=== PATIENT | female | born 1970 | race Caucasian/White ===

== ENCOUNTER 2016-06-03 16:08 | Emergency (ER) | payer MEDICAID ==
[~2016-06-03 16:08] MED LIST: MOTRIN800 MG PO; PRI20 PO
[2016-06-03 19:38] VITALS: BP 152/90
== END 2016-06-03 19:38 | disposition home or self-care (01) ==
LOC: ED 16:08
DX: G43.909 Migraine, unspecified, not intractable, without status migrainosus (principal); E78.00 Pure hypercholesterolemia, unspecified
CPT/HCPCS: J3030; Q0162

== ENCOUNTER 2017-04-27 16:37 | Emergency (ER) | payer MEDICAID ==
[~2017-04-27] VITALS: Ht 160 cm; Wt 60.8 kg
[2017-04-27 20:56] VITALS: BP 146/86
== END 2017-04-27 20:56 | disposition home or self-care (01) ==
LOC: ED 16:37
DX: G43.909 Migraine, unspecified, not intractable, without status migrainosus (principal); R03.0 Elevated blood-pressure reading, without diagnosis of hypertension; E78.00 Pure hypercholesterolemia, unspecified

== ENCOUNTER 2018-09-15 16:07 | Emergency (ER) | payer MEDICAID ==
[~2018-09-15] VITALS: Ht 157.5 cm; Wt 64.4 kg
[2018-09-15 16:15] VITALS: Ht 157.5 cm; Wt 64.4 kg
[2018-09-15 17:43] VITALS: BP 127/55
== END 2018-09-15 17:43 | disposition home or self-care (01) ==
LOC: ED 16:07
DX: G43.909 Migraine, unspecified, not intractable, without status migrainosus (principal); E78.00 Pure hypercholesterolemia, unspecified
CPT/HCPCS: J1885; J2765